=== PATIENT | male | born 1955 | race Caucasian/White ===

== ENCOUNTER 2016-06-26 03:51 | Emergency (ER) | payer OTHER ==
[~2016-06-26] VITALS: Ht 167.6 cm; Wt 98.0 kg
[~2016-06-26 03:51] MED LIST: CIPR500T4 PO; HYDR-902 PO; TAMS-14 PO
[2016-06-26 03:53] VITALS: Ht 167.6 cm; Wt 98.0 kg
[2016-06-26] MEDS ORDERED: KETOROLAC 30 MG INJ IV STA (04:00)
[2016-06-26] MEDS ORDERED: morphine 4 MG/ML VIAL IV STA (04:00)
[2016-06-26] MEDS ORDERED: ONDANSETRON 4 MG INJ IV STA (04:00)
[2016-06-26] MEDS ORDERED: SOD CHLORIDE 0.9% 1,000 ML IV STA (04:00)
[2016-06-26 04:23] VITALS: TEMP 98.5
[2016-06-26 04:47] LABS: ADD SCAN DIFF NO
[2016-06-26 04:49] LABS: BASOPHILS % 0.3 % (0.0-2.0); EOSINOPHILS # 0.7 10^3/ul (0.0-0.5); EOSINOPHILS % 7.6 % (0.0-7.0); LYMPHOCYTES % 22.5 % (15.0-51.0); MEAN CORPUSCULAR HEMOGLOBIN 30.6 pg (29.0-33.0); MEAN CORPUSCULAR HGB CONC 34.9 g/dl (32.0-37.0); MEAN CORPUSCULAR VOLUME 87.8 fl (82.0-101.0); MONOCYTE # 0.8 10^3/ul (0.3-0.9); NEUTROPHIL # 5.3 10^3/ul (1.6-7.5); NEUTROPHILS % 60.1 % (39.0-77.0); PLATELET COUNT 219 10^3/UL (140-415); RED CELL DISTRIBUTION WIDTH 12.4 % (11.5-14.5); WHITE BLOOD COUNT 8.7 10^3/ul (4.8-10.8)
--- NOTE | 2016-06-26 05:04 | RADRPT ---
PROCEDURE: CT Abdomen and pelvis without contrast. CLINICAL INDICATION: Abdominal pain. TECHNIQUE: CT scan of the abdomen and pelvis was performed on a multi-detector high-resolution CT scanner. Contiguous axial images were obtained from the lung bases to the ischial tuberosities wit hout intravenous contrast. Coronal and sagittal reformatted images were also obtained. Images were reviewed on the PACS workstation. One or more of the following dose reduction techniques were used: - Automated exposure control. - Adjustment of the mA and/or kV according to patient size. - Use of iterative reconstruction technique. Exam CTD/vol = 20.20 mGy. Total exam DLP = 1292.51 mGy-cm. COMPARISON: 10/17/2015. FINDINGS: Evaluation of the lung bases demonstrates no pleural or parenchymal disease. Abdomen: The liver is normal in size. There is no focal mass or dilatation of the biliary tree. The gallbladder is not distended. The spleen, pancreas and bilateral adrenal glands are within normal li mits. Bilateral kidneys are normal in size with a small cyst within the mid to lower pole of the lef t kidney. There is a 1 mm calculus within the mid left kidney. There is mild left-sided hydronephros is with mild perinephric stranding. There is no retroperitoneal adenopathy. The abdominal aorta is o f normal caliber with scattered atherosclerotic calcifications. There is no abnormal bowel wall thickening or distension. There is no bowel obstruction or free air. The appendix is not visualized. There is no diverticulosis or diverticulitis. There is no ascites. Pelvis: The bladder is unremarkable. There is a 4 x 3 mm calculus at the left ureterovesicular junct ion. The prostate is moderately enlarged. There are bilateral small inguinal hernias containing fat. There is no significant pelvic adenopathy or free fluid. Evaluation of the osseous structures demonstrates no suspicious lytic or blastic lesion. IMPRESSION: Left ureterovesicular junction 4 x 3 mm calculus with mild left-sided hydronephrosis. Left renal calculus. Moderately enlarged prostate. Bilateral small inguinal hernias containing fat. Vascular calcifications reflective of atherosclerosis. .Andrew Marroquin MD, Date Time Electronically viewed and signed by .Andrew Marroquin MD, MD on 06/26/2016 05:04 .T/
[2016-06-26 05:06] LABS: ALBUMIN 4.4 g/dl (3.3-4.9); ALBUMIN/GLOBULIN RATIO 1.25; BILIRUBIN,INDIRECT 0.5 mg/dl (0-1.1); BILIRUBIN,TOTAL 0.5 mg/dl (0.2-1.3); CALCIUM 9.6 mg/dl (8.4-10.2); CREATININE 1.39 mg/dl (0.61-1.24); POTASSIUM 4.2 mmol/L (3.5-5.1); TOTAL PROTEIN 7.9 g/dl (6.1-8.1)
[2016-06-26] MEDS ORDERED: AMLO2.5T78 PO (05:31)
[2016-06-26] MEDS ORDERED: CLOP75TA27 PO (05:31)
[2016-06-26] MEDS ORDERED: LOSA25TA5 PO (05:31)
[2016-06-26] MEDS ORDERED: ASPI-664 PO (05:31)
[2016-06-26] MEDS ORDERED: HYDROmorphONE 1 MG/ML SYG IV ONE (05:33)
--- NOTE | 2016-06-26 05:50 | ERD ---
ER Documentation Chief Complaint Date/Time DATE: 06/26/16 TIME: 05:49 Chief Complaint left flank pain x 2 days HPI Is a 61-year-old male comes a left flank pain for the past 2 days. Pain is mild to moderate intensity. Is colicky in nature. Mild associated nausea. No vomiting. No other current complaints. No fevers no chills. No trauma. No hematuria noted. No other current problems ROS All systems reviewed and are negative except as per history of present illness. Medications Home Meds Active Scripts Tamsulosin Hcl* (Flomax*) 0.4 Mg Cap.er.24h, 0.4 MG PO DAILY for 10 Days, CAP Prov:PRESTON LOBO 10/17/15 Hydrocodone/Acetaminophen ([place] 10-325 Tablet) 1 Each Tablet, 1 TAB PO Q6H Y for PAIN, #20 TAB Prov:PRESTON LOBO 10/17/15 Reported Medications Clopidogrel Bisulfate (Clopidogrel) 75 Mg Tablet, 75 MG PO DAILY, #30 TAB 06/26/16 Losartan Potassium* (Losartan Potassium*) 25 Mg Tablet, 25 MG PO DAILY, TAB 06/26/16 Aspirin* (Aspirin* EC) 81 Mg Tablet.dr, 81 MG PO DAILY, TAB 06/26/16 Amlodipine Besylate* (Amlodipine Besylate*) 2.5 Mg Tablet, 2.5 MG PO DAILY, #30 TAB 06/26/16 Discontinued Scripts Ciprofloxacin Hcl* (Ciprofloxacin Hcl*) 500 Mg Tablet, 500 MG PO BID, #14 TAB Prov:PRESTON LOBO 10/17/15 Allergies Allergies: Coded Allergies: No Known Drug Allergies (Unverified Allergy, Unknown, 06/26/16) PMhx/Soc History of Surgery: Yes (CARDIAC STENTS, CARPAL TUNNEL SX JOAN HANDS) Hx Neurological Disorder: No Hx Respiratory Disorders: No Hx Cardiac Disorders: Yes (HTN, CAD, HIGH CHOL) Hx Psychiatric Problems: No Hx Miscellaneous Medical Probl: Yes (BACK PAIN) Hx Alcohol Use: Yes (OCC) Hx Substance Use: No Hx Tobacco Use: No (QUIT APRIL 2016) Smoking Status: Former smoker Physical Exam Vitals Vital Signs Date Time Temp Pulse Resp B/P Pulse Ox O2 Delivery O2 Flow Rate FiO2 06/26/16 04:23 98.5 77 20 167/89 100 06/26/16 03:53 98.5 76 20 167/89 100 Physical Exam Const: [] Head: Atraumatic Eyes: Normal Conjunctiva ENT: Normal External Ears, Nose and Mouth. Neck: Full range of motion..~ No meningismus. Resp: Clear to auscultation bilaterally Cardio: Regular rate and rhythm, no murmurs Abd: Soft, non tender, non distended. Normal bowel sounds Skin: No petechiae or rashes Back: No midline or flank tenderness Ext: No cyanosis, or edema Neur: Awake and alert Psych: Normal Mood and Affect Result Diagram: 06/26/163 06/26/16412 Results 24 hrs Laboratory Tests Test 06/26/16 04:13 White Blood Count 8.710^3/ul Red Blood Count 4.9010^6/ul Hemoglobin 15.0g/dl Hematocrit 43.0% Mean Corpuscular Volume 87.8fl Mean Corpuscular Hemoglobin 30.6pg Mean Corpuscular Hemoglobin Concent 34.9g/dl Red Cell Distribution Width 12.4% Platelet Count 41064^3/UL Mean Platelet Volume 10.0fl Neutrophils % 60.1% Lymphocytes % 22.5% Monocytes % 9.0% Eosinophils % 7.6% Basophils % 0.3% Nucleated Red Blood Cells % 0.0/100WBC Neutrophils # 5.310^3/ul Lymphocytes # 2.010^3/ul Monocytes # 0.810^3/ul Eosinophils # 0.710^3/ul Basophils # 0.010^3/ul Nucleated Red Blood Cells # 0.010^3/ul Sodium Level 139mmol/L Potassium Level 4.2mmol/L Chloride Level 104mmol/L Carbon Dioxide Level 25mmol/L Anion Gap 14 Blood Urea Nitrogen 15mg/dl Creatinine 1.39mg/dl Glucose Level 121mg/dl Calcium Level 9.6mg/dl Total Bilirubin 0.5mg/dl Direct Bilirubin 0.00mg/dl Indirect Bilirubin 0.5mg/dl Aspartate Amino Transf (AST/SGOT) 32IU/L Alanine Aminotransferase (ALT/SGPT) 54IU/L Alkaline Phosphatase 88IU/L Total Protein 7.9g/dl Albumin 4.4g/dl Globulin 3.50g/dl Albumin/Globulin Ratio 1.25 Lipase 127U/L Current Medications Medications (Trade) Dose Ordered Sig/Royer Route PRN Reason Start Time Stop Time Status Last Admin Dose Admin Sodium Chloride (NS) 1,000 ml @ 1,000 mls/hr Q1H STAT IV 06/26/16 04:00 06/26/16 04:59 DC 06/26/16 04:17 Morphine Sulfate (morphine) 4 mg ONCE STAT IV 06/26/16 04:00 06/26/16 04:01 DC 06/26/16 04:17 Ondansetron HCl (Zofran Inj) 4 mg ONCE STAT IV 06/26/16 04:00 06/26/16 04:01 DC 06/26/16 04:17 Ketorolac Tromethamine (Toradol) 30 mg ONCE STAT IV 06/26/16 04:00 06/26/16 04:02 DC 06/26/16 04:17 Hydromorphone HCl (Dilaudid) 1 mg ONCE ONCE IV 06/26/16 05:33 06/26/16 05:34 DC 06/26/16 05:38 Procedures/MDM Medical decision-making: This very pleasant 7-year-old male with renal colic. At this point his pain is controlled. He will be discharged with Cipro, Flomax , [place], Motrin. His return 8 hours for serial abdominal exams. Departure Diagnosis: Primary Impression: Flank pain Condition: Stable PRESTON LOBO June 26, 2016 05:50
[2016-06-26] MEDS ORDERED: HYDR-902 PO (05:52)
[2016-06-26] MEDS ORDERED: CIPR500T4 PO (05:52)
[2016-06-26] MEDS ORDERED: TAMS-14 PO (05:52)
[2016-06-26 06:20] VITALS: BP 152/88; PULSE 68; RESP 18
== END 2016-06-26 06:36 | disposition home or self-care (01) ==
LOC: E/R 03:51
DX: R10.9 Unspecified abdominal pain (principal); I10 Essential (primary) hypertension; I25.10 Atherosclerotic heart disease of native coronary artery without angina pectoris; R11.0 Nausea; Z79.82 Long term (current) use of aspirin; Z87.891 Personal history of nicotine dependence; Z98.61 Coronary angioplasty status
CPT/HCPCS: 74176; 80053; 83690; 85025; 96374; 96375; 99285; J1170; J1885; J2270; J2405; J7030

== ENCOUNTER → 2016-09-25 | Outpatient (CLI) | payer MEDICARE, MEDICAID ==
[~2016-09-25] MED LIST changes: +AMLO2.5T78 PO; +ASPI-664 PO; +CLOP75TA27 PO; +LOSA25TA5 PO
== END | disposition home or self-care (01) ==
LOC: CRE 08:31
PROVIDERS: ATTEND Internal Medicine Interventional Cardiology
DX: I25.10 Atherosclerotic heart disease of native coronary artery without angina pectoris (principal); Z98.61 Coronary angioplasty status
CPT/HCPCS: 93797